=== PATIENT | female | born 1940 | race Caucasian/White ===

== ENCOUNTER → 2019-01-02 | Outpatient (CLI) | payer MEDICARE, BC, OTHER ==
[~2019-01-02] MED LIST: ACETAMINOPHEN650 M5 PO; ASPIRIN325 PO; BENAZEPRIL HCL40 MG PO; CHOLESTEROL MA1 EACH; DIPHENHYDRAMINE25 M3 PO; HYDRALAZINE 10M10 MG PO; MINOCYCLINE HCL50 M1 PO; SIMVASTATIN20 MG PO
== END ==
LOC: M.RAD 13:02
DX: M81.0 Age-related osteoporosis without current pathological fracture (principal); M48.56XA Collapsed vertebra, not elsewhere classified, lumbar region, initial encounter for fracture; M48.54XA Collapsed vertebra, not elsewhere classified, thoracic region, initial encounter for fracture; R10.84 Generalized abdominal pain